=== PATIENT | male | born 1980 | race African-American/Black ===

== ENCOUNTER 2016-10-31 09:04 | Emergency (ER) | payer MEDICAID ==
[~2016-10-31] VITALS: Ht 185.4 cm; Wt 102.0 kg
[~2016-10-31 09:04] MED LIST: IBUP800T23 PO; ORPH100T PO; TRAM50 PO
[2016-10-31 09:06] VITALS: BP 144/94; PULSE 84; RESP 18; TEMP 97.9; O2SAT 98
--- NOTE | 2016-10-31 09:27 | PD ---
HPI Chief Complaint: Back/ Neck Pain or Injury Time Seen by Provider: 09:27 Travel History International Travel<30 days: No Contact w/Intl Traveler<30days: No Traveled to known affect area: No History of Present Illness HPI 36-year-old male presents to the emergency department with complaint of low back pain since yesterday after moving this weekend and moving large, heavy furniture. Has had back pain like this before. Reports left side is worse than right. Reports left lower back pain radiates down his buttock and back of his leg. Denies encopresis, incontinence, saddle anesthesia. Denies paresthesias, loss of sensation, decreased range of motion, decreased strength to bilateral lower extremities. Denies fever, chills, nausea, vomiting. Denies IV drug use. Denies cancer. Has not taken any medications to alleviate his symptoms. Has tried a heating pad with some relief of pain. Pain is aggravated with movement, walking, and standing up straight. Does not have a primary care provider. Denies significant past medical history. No known allergies. No other modifying factors or associated signs and symptoms. [facility] Past Medical History Medical History: Denies Significant Hx Social History Alcohol Use: Yes Tobacco Use: No Substance Use: No Allergies-Medications (Allergen,Severity, Reaction): Coded Allergies: No Known Allergies (Unverified , 10/31/16) Reported Meds & Prescriptions Reported Meds & Active Scripts Active Robaxin (Methocarbamol) 500 Mg Tab 500 Mg PO QID PRN Naprosyn (Naproxen) 500 Mg Tab 500 Mg PO BID PRN Review of Systems Except as stated in HPI: all other systems reviewed are Neg Physical Exam Narrative GENERAL: Well-nourished, well-developed male patient, in no acute distress SKIN: Warm and dry. HEAD: Atraumatic. Normocephalic. EYES: Pupils equal and round. No scleral icterus. No injection or drainage. ENT: Mucosa pink and moist. Airway patent. NECK: Trachea midline. CARDIOVASCULAR: Regular rate. RESPIRATORY: No accessory muscle use. GASTROINTESTINAL: Rounded. MUSCULOSKELETAL: Bilateral lower extremities supple and non-tense with 2+ pedal pulses and sensory intact; with full range of motion and 5/5 strength. 2 + DTRs. Active dorsiflexion and extension of bilateral feet. Bilateral straight leg raise is positive for low back pain; left worse than right. Ambulatory with guarded gait. Sitting up in bed at 90. No obvious deformities. No clubbing. No cyanosis. No edema. BACK: No midline point tenderness on palpation of the lumbar, thoracic, or cervical spine. Tenderness on palpation of bilateral iliosacral area; worse than right. Reproducible tenderness to bilateral paraspinal lumbar areas. No obvious deformities. NEUROLOGICAL: Awake and alert. Oriented 3. No obvious cranial nerve deficits. Motor grossly within normal limits. Normal speech. Moves all extremities. 5/5 strength to all extremities. Sensory intact. PSYCHIATRIC: Appropriate mood and affect; insight and judgment normal. Data Data Last Documented VS Vital Signs Date Time Temp Pulse Resp B/P Pulse Ox O2 Delivery O2 Flow Rate FiO2 10/31/16 09:06 97.9 84 18 144/94 98 Room Air Orders Ketorolac Inj (Toradol Inj) (10/31/16 09:30) Orphenadrine Inj (Norflex Inj) (10/31/16 09:30) MDM Medical Decision Making Medical Screen Exam Complete: Yes Emergency Medical Condition: Yes Medical Record Reviewed: Yes Differential Diagnosis Sciatica, low back strain, acute exacerbation of chronic low back pain Narrative Course 36-year-old male physical examination consistent with low back strain and left- sided sciatica. Has had back pain like this before. Denies encopresis, incontinence, saddle anesthesias. No midline point tenderness on palpation of the lumbar spine. Denies IV drug use. Denies cancer. Ambulatory with cardiac he at the bedside. Patient afebrile. Denies fever, chills, nausea, vomiting at home. Toradol and Norflex administered in the ER. Ibuprofen and Robaxin prescribed for home. Patient is medically cleared and stable for discharge. Discussed reasons to return to the emergency department. Instructed patient to follow up with primary care provider. Patient agrees with treatment plan. The patients vital signs are stable and the patient is stable for outpatient follow- up and treatment. Patient discharged home, stable and in no acute distress. Diagnosis Primary Impression: Low back strain Qualified Code: S39.012A - Low back strain, initial encounter Additional Impression: Sciatica of left side Referrals: Primary Care Physician Patient Instructions: Acute Low Back Pain (ED), General Instructions, Low Back Strain (ED), Sciatica (ED) Departure Forms: Tests/Procedures, Work Release Enter return to work date: Nov 04, 2016 Additional Instructions: Tylenol or ibuprofen as directed and as needed for pain Flexeril as prescribed and as needed for muscle spasms Heating pad and/or ice to affected area to reduce pain Avoid aggravating activities; increase activity as tolerated Follow-up with primary care provider Return to emergency department immediately with worsening of symptoms Med/Other Pt SpecificInfo: Prescription(s) given Scripts Methocarbamol (Robaxin)500 Mg [id number] Mg PO QID PRN (MUSCLE SPASM) #30 TAB Ref 0 Prov:Nesha Tran 10/31/16 Naproxen (Naprosyn)500 Mg [id number] Mg PO BID PRN (PAIN SCALE 1 TO 10) #20 TAB Ref 0 Prov:Nesha Tran 10/31/16 Disposition: 01 DISCHARGE HOME Condition: Stable Nesha Tran Oct 31, 2016 09:27 Nesha Tran Oct 31, 2016 09:27
[2016-10-31] MEDS ORDERED: ORPHENADRINE INJ 60 MG/2 ML AMP IM ONE (09:30)
[2016-10-31] MEDS ORDERED: KETOROLAC TROMETHAMINE 60 MG/2 ML (IM) VIAL IM ONE (09:30)
[2016-10-31] MEDS ORDERED: NAPR500 PO (09:36)
[2016-10-31] MEDS ORDERED: CYCL1TAB29 PO (09:36)
[2016-10-31] MEDS ORDERED: ROBA500T PO (09:59)
== END 2016-10-31 10:08 | disposition home or self-care (01) ==
LOC: NEPB 09:04
DX: S39.012A Strain of muscle, fascia and tendon of lower back, initial encounter (principal); X50.0XXA Overexertion from strenuous movement or load, initial encounter
CPT/HCPCS: 96372; 99283; J1885; J2360